=== PATIENT | male | born 1975 | race African-American/Black ===

== ENCOUNTER 2017-10-23 15:28 | Emergency (ER) | payer BC, MEDICAID, OTHER ==
[2017-10-23 15:34] VITALS: BP 119/80
--- NOTE | 2017-10-23 16:12 | EDPHY ---
H & P Time Seen by Provider: 10/23/17 15:37 HPI/ROS: CHIEF COMPLAINT: Medication refill request HISTORY OF PRESENT ILLNESS: 42-year-old male presents to the emergency department requesting refill of his albuterol inhaler. The patient has a history of asthma and typically uses an albuterol inhaler once or twice per week. He states that he is from [place] and while he lived in [place] 8 years ago he used his albuterol inhaler and then when he was in [place] where he is originally from he was fine. He just recently moved back to [place] 1 month ago. He currently does not have any cold symptoms. He states that he has not used his albuterol inhaler in over 1 month. No fevers or chills. No chest pain or difficulty breathing currently. ROS: Denies fevers, chills, hemoptysis, pain in his chest or difficulty breathing. Past Medical/Surgical History: Asthma Social History: Single and lives in [place]. Originally from [place] Smoking Status: Never smoked Physical Exam: On examination the patient has normal vital signs including O2 saturation of 97 % on room air. He is not tachycardic. His lungs are clear to auscultation in all [place] with no wheezing, rhonchi or rales. Heart regular rate rhythm without murmur. Abdomen is soft. Neck is supple. Constitutional: Initial Vital Signs Temperature (C) 36.6 C 10/23/17 15:32 Heart Rate 85 10/23/17 15:32 Respiratory Rate 18 10/23/17 15:32 Blood Pressure 119/80 10/23/17 15:32 O2 Sat (%) 97 10/23/17 15:32 O2 Delivery Mode Room Air Allergies/Adverse Reactions: No Known Allergies Allergy (Unverified 10/23/17 15:31) Home Medications: Medication Instructions Recorded Albuterol 10/23/17 NK [No Known Home Meds] 10/23/17 MDM/Departure - MDM ED Course/Re-evaluation: 42-year-old male presents to the emergency department requesting refill of albuterol inhaler. I do not think nebulizer is indicated. Do not think chest x -rays indicated. Patient had is currently asymptomatic now and just ran out of his albuterol inhaler 1 month ago since returning to [place]. Patient was also given primary care referral per - Depart Disposition: Home, Routine, Self-Care Clinical Impression: Medication refill request Asthma Qualifiers: Asthma severity: mild Asthma persistence: intermittent Asthma complication type : uncomplicated Qualified Code(s): J45.20 - Mild intermittent asthma, uncomplicated Condition: Good Instructions: Asthma (ED) Additional Instructions: Albuterol inhaler 2 puffs every 4 hr as needed for 1 week when you are feeling sick. Otherwise this medication should only be used once or twice per week if needed. If you require this medication more frequently, you should follow up with primary care provider to recheck and discuss. Referrals: Yarely Collier MD [Medical Doctor] - As per Instructions (Primary care provider construction framer)
== END 2017-10-23 16:18 | disposition home or self-care (01) ==
DX: Z76.0 Encounter for issue of repeat prescription (principal); J45.20 Mild intermittent asthma, uncomplicated

== ENCOUNTER 2018-01-08 13:55 | Emergency (ER) | payer MEDICAID ==
[2018-01-08 14:01] VITALS: BP 137/90
--- NOTE | 2018-01-08 14:08 | EDPHY ---
H & P Stated Complaint: R eye pain and tearing - Personal History Current Tetanus/Diphtheria Vaccine: Yes Current Tetanus Diphtheria and Acellular Pertussis (TDAP): Yes - Medical/Surgical History Hx Asthma: Yes Hx Chronic Respiratory Disease: No Hx Diabetes: No Hx Cardiac Disease: No Hx Renal Disease: No Hx Cirrhosis: No Hx Alcoholism: No Hx HIV/AIDS: No Hx Splenectomy or Spleen Trauma: No Other PMH: asthma - Social History Smoking Status: Never smoked Time Seen by Provider: 01/08/18 14:07 HPI/ROS: 2:40 p.m.: I was asked by Dr. Micah Jennings to perform ocular examination OCULAR EXAM: Visual Acuity: noted from Nurse's notes. Pupils:equal round and reactive to light EOMI Lids: no edema or swelling, upper and lower lids were everted and no foreign bodies were visualized, no areas of increased fluorescein uptake. Skin: no proptosis, no periorbital erythema or swelling, no vesicles, no pain with extraocular movements. Conjunctivae: not injected, no discharge, negative Ross test. No laceration. No abrasion. No dendrite. Cornea: exam with fluorescein shows no areas of increased uptake. Anterior chamber:normal, no hyphema or hypopyon. Tonometry is 12 mm Hg ([place], Kaur Hansa) Constitutional: Initial Vital Signs Temperature (C) 36.8 C 01/08/18 13:59 Heart Rate 72 01/08/18 13:59 Respiratory Rate 16 01/08/18 13:59 Blood Pressure 137/90 H 01/08/18 13:59 O2 Sat (%) 96 01/08/18 13:59 O2 Delivery Mode Room Air Allergies/Adverse Reactions: No Known Allergies Allergy (Unverified 01/08/18 13:58) Home Medications: Medication Instructions Recorded Albuterol 10/23/17 Medical Decision Making ED Course/Re-evaluation: CHIEF COMPLAINT: Right eye pain HISTORY OF PRESENT ILLNESS: This patient is a 42 year old male complaining of right eye pain. This has been ongoing for 6 months. He complains of discomfort only in the right eye, particularly when air blows on it. This often causes his eye to tear up. e denies any recent trauma or possibility of foreign body in the eye. He had not noted any swelling, redness, or discharge other than normal appearing tears. He denies fever, headache, or recent cough or cold symptoms. REVIEW OF SYSTEMS: A comprehensive 10 system review of systems is otherwise negative aside from elements mentioned in the history of present illness and medical decision making. PHYSICAL EXAM: See note above by MIRIAM Kerns, who performed the eye exam. Exam normal. Past medical history: Asthma Past surgical history: Noncontributory. Family history: Noncontributory. Social history: Single. Lives in [place]. Does not abuse tobacco, drugs, or alcohol. DIFFERENTIAL DIAGNOSIS: Includes but not limited to conjunctivitis, blepharitis, corneal abrasion, keratitis, uveitis, foreign body. MEDICAL DECISION MAKIN42 y/o male presents with right eye pain. I asked MIRIAM Kerns, to perform exam. Exam was normal. 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 The PA explained that this testing is generally done by an physicians and surgeons and we cannot complete all necessary tests here in the emergency department. He will follow up with optometry. (Micah Jennings) Departure - Departure Disposition: Home, Routine, Self-Care Clinical Impression: Discomfort of right eye Condition: Good Instructions: Eye Pain (ED) Additional Instructions: Please follow up with an physicians and surgeons or charge entry specialist for your eye exam. Referrals: Angie Poole MD [Medical Doctor] - As per Instructions Report Scribed for: Micah Jennings Report Scribed by: Maria A Waters Date of Report: 01/08/18 Time of Report: 14:09
[2018-01-08] MEDS ORDERED: FLUORESCEIN SODIUM 1 MG STRIP OP ONE (14:44)
[2018-01-08] MEDS ORDERED: PROPARACAINE 0.5% 15 ML OPHT DROP OP ONE (14:44)
== END 2018-01-08 15:39 | disposition home or self-care (01) ==
DX: H57.11 Ocular pain, right eye (principal)